=== PATIENT | female | born 1960 | race Caucasian/White ===

== ENCOUNTER → 2017-01-02 | Day surgery (SDC) | payer BC ==
[~2017-01-02] MED LIST: Lactated Ringers 1,000 ML IV SCH; Lactated Ringers 1,000 ML ONE; Propofol 200 MG/20 ML SDV IV ONE
[2017-01-02 13:32] VITALS: BP 168/82
--- NOTE | 2017-01-02 14:31 | OR ---
DATE OF OPERATION: 01/02/2017 PREOPERATIVE DIAGNOSIS: SCREENING COLONOSCOPY. POSTOPERATIVE DIAGNOSIS: SCREENING COLONOSCOPY. SURGEON: Cale Smyth MD PROCEDURE: FULL-LENGTH COLONOSCOPY. ANESTHESIA: FAMILY SUPPORT SPECIALIST due to GERD and prior gastric bypass. COMPLICATIONS: None. SPECIMEN: None. FINDINGS: Normal full-length colonoscopy. RECOMMENDATIONS: Routine colonoscopy every 10 years. INDICATIONS: The patient was in for routine physical. She has never had a prior colonoscopy. We recommended screening procedure. DESCRIPTION OF PROCEDURE: The patient was prepped and draped, placed in the left lateral decubitus position. A lubricated Olympus colonoscope was inserted and easily advanced to the cecum. Direct visualization of the ileocecal valve and appendiceal orifice was accomplished. The bowel prep was fine. Upon withdrawal of the scope throughout the entire length of the colon, I found no signs of any polyps, mass, ulceration, or bleeding sites. No vascular abnormalities or signs of colitis. No significant diverticula were seen. The rectal vault was unremarkable. Retroflexion of the scope in the rectum showed no anal lesions. Air was then suctioned. Scope was removed without complication. MAGUE/RADHA /[id number]
== END ==
LOC: CC.SDS 11:07
PROVIDERS: ATTEND Family Medicine
DX: Z12.11 Encounter for screening for malignant neoplasm of colon (principal)
CPT/HCPCS: 45378; J7120; J2704

== ENCOUNTER → 2018-02-05 | Day surgery (SDC) | payer BC ==
[~2018-02-05] MED LIST changes: -Lactated Ringers 1,000 ML ONE; +Lidocaine 4% Top Soln 5 ML LTA Syringe ONE; +Lidocaine 4% Top Soln 5 ML LTA Syringe TOP ONE; +Meperidine PF 25 MG/ML Syringe ONE; +Meperidine PF 50 MG/ML Syringe IV ONE; +Midazolam 1 MG/ML 2 ML SDV IV ONE; +Midazolam 1 MG/ML 2 ML SDV ONE; -Propofol 200 MG/20 ML SDV IV ONE
[2018-02-05 12:09] VITALS: BP 119/68
--- NOTE | 2018-02-08 08:13 | OR ---
DATE OF OPERATION: 02/05/2018 PREOPERATIVE DIAGNOSIS: EPIGASTRIC PAIN. POSTOPERATIVE DIAGNOSIS: EPIGASTRIC PAIN. SURGEON: Cale Smyth MD PROCEDURE: EGD WITH BIOPSIES X3, KAYLI. ANESTHESIA: Conscious sedation. COMPLICATIONS: None. SPECIMEN: 1. Anastomotic biopsy x1. 2. Distal esophageal biopsy x1. 3. Antral biopsy x1. 4. KAYLI. FINDINGS: 1. Full-length EGD. 2. Status post Quintin-en-Y gastric bypass. 3. Anastomotic ulcer over staple region. 4. Small hiatal hernia with spontaneous GERD. 5. 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 RECOMMENDATIONS: Medical followup pending path reports. INDICATIONS: Mrs. Rivera was recommended by GI to have an EGD after she has been having some abdominal pain. We had sent her there for elevated LFTs. She does take a daily proton pump inhibitor. DESCRIPTION OF PROCEDURE: The patient was prepped and draped, placed in left lateral decubitus position with the head of the bed elevated. A lubricated Olympus gastroscope was inserted over a bit and advanced to cricopharyngeus area and easily intubated in the esophagus. Esophageal line was essentially benign in its entire course. The Z-line was crisp and sharp around 36.5 to 37 cm associated with a small hiatal hernia. There was some spontaneous reflux present and there does appear to be at least 1 short segment Bhandari's change. We did do a biopsy of that. The scope was advanced into the stomach, where the patient is status post gastric bypass with a markedly diminished opacity. Quintin- en-Y anastomosis is evaluated. There is staple that has a dark scab or I suspect this represents a healing ulcer. I did not biopsy that area. There was some irregularity along one of the other areas of anastomosis and a biopsy was taken of that. The jejunal side of the anastomosis looks fine. There is no peptic ulcer disease on that side. The scope was brought back. Retroflex, I was able to look up at the upper cardia, which looked benign other than the hernia. We did do a biopsy of what was present in the antrum along with the KAYLI test. Air was then suctioned. Scope was removed without complication. MAGUE/RADHA /[id number]
== END ==
LOC: CC.SDS 10:55
PROVIDERS: ATTEND Family Medicine
DX: K29.50 Unspecified chronic gastritis without bleeding (principal); K21.0 Gastro-esophageal reflux disease with esophagitis; K44.9 Diaphragmatic hernia without obstruction or gangrene; F32.9 Major depressive disorder, single episode, unspecified; E53.8 Deficiency of other specified B group vitamins; J30.9 Allergic rhinitis, unspecified; Z88.1 Allergy status to other antibiotic agents; Z88.8 Allergy status to other drugs, medicaments and biological substances; Z79.899 Other long term (current) drug therapy
CPT/HCPCS: 87081; A9270-GY; J2175; J2250; J7120

== ENCOUNTER 2018-08-16 02:34 | Emergency (ER) | payer BC ==
[2018-08-16] MEDS ORDERED: Ketorolac 10 MG Tab PO ONE ×2 (02:35)
[2018-08-16] MEDS ORDERED: Sodium Chloride 0.9% 1,000 ML IV SCH (02:45)
[2018-08-16] MEDS ORDERED: Ketorolac 30 MG/ML SDV IVPUSH ONE (02:46)
[2018-08-16 03:22] LABS: CHLORIDE,CL 110 mEq/L (98-106); SODIUM,NA 144 mEq/L (136-145)
--- NOTE | 2018-08-16 03:38 | EDM.PDOC ---
ED HPI GENERAL MEDICAL PROBLEM - General Chief Complaint: Flank Pain Stated Complaint: L side pain Time Seen by Provider: 08/16/18 03:17 - History of Present Illness INITIAL COMMENTS - FREE TEXT/NARRATIVE: Sarita is a 58 year old female who presents to the ED with c/o left sided pain. She reports that throughout the day today she just overall didn't feel well. She then reports she got up to urinate around 1:00 am and had significant onset of left sided pain. She does report she has history of kidney stones and this feels similar. Denies any fever, chills, dysuria, urinary frequency, urgency, hematuria, chest pain, shortness of breath, or vomiting. Does report she has had some diarrhea today and felt nauseated on the drive to the ED. She reports she tried taking some Pepto Bismol and Tramadol at home without relief. She rated her pain 8/10 upon arrival to ED. Upon my exam, patient had recieved IV toradol and reports this took her pain away. Rates pain a 0/10. Left Flank Pain Score (Numeric/FACES): 8 - Related Data Allergies Allergy/AdvReac Type Severity Reaction Status Date / Time doxycycline Allergy Nausea and Verified 08/16/18 02:35 Vomiting morphine Allergy Cannot Verified 08/16/18 02:35 Remember Home Meds: Home Meds traMADol [Ultram] 50 - 100 mg PO Q6H PRN 01/02/17 [History] Ketorolac [Toradol] 10 mg PO Q6H PRN #15 tab 08/16/18 [Rx] Tamsulosin HCl [Flomax] 0.4 mg PO DAILY #7 cap.er.24h 08/16/18 [Rx] Past Medical History HEENT History: Reports: Impaired Vision Genitourinary History: Reports: Renal Calculus Dermatologic History: Reports: Melanoma - Past Surgical History GI Surgical History: Reports: Cholecystectomy, Other (See Below) Other GI Surgeries/Procedures: gastric bypass Female Surgical History: Reports: Kidney stone extraction Musculoskeletal Surgical History: Reports: Knee Replacement Social & Family History - Family History Family Medical History: Noncontributory - Tobacco Use Smoking Status *Q: Never Smoker - Caffeine Use Caffeine Use: Reports: Coffee - Recreational Drug Use Recreational Drug Use: No ED ROS GENERAL - Review of Systems Review Of Systems: ROS reveals no pertinent complaints other than HPI. Constitutional: Reports: Decreased Appetite. Denies: Fever, Chills, Weakness, Fatigue HEENT: Reports: No Symptoms Respiratory: Reports: No Symptoms Cardiovascular: Reports: No Symptoms Endocrine: Reports: No Symptoms GI/Abdominal: Reports: Abdominal Pain (radiating across left ), Diarrhea, Decreased Appetite, Nausea. Denies: Black Stool, Bloody Stool, Constipation, Vomiting : Reports: Flank Pain, Pain. Denies: Dysuria, Frequency, Hematuria, Urgency, Urinary Retention Musculoskeletal: Reports: Back Pain (left flank) Skin: Reports: No Symptoms Neurological: Reports: No Symptoms Psychiatric: Reports: No Symptoms Hematologic/Lymphatic: Reports: No Symptoms Immunologic: Reports: No Symptoms ED EXAM, RENAL/ - Physical Exam Exam: See Below Exam Limited By: No Limitations General Appearance: Alert, WD/WN, No Apparent Distress (upon my exam following toradol) Throat/Mouth: Normal Inspection, Normal Lips, Normal Teeth, Normal Gums, Normal Oropharynx, Normal Voice, No Airway Compromise Head: Atraumatic, Normocephalic Neck: Normal Inspection, Supple, Non-Tender, Full Range of Motion Respiratory/Chest: No Respiratory Distress, Lungs Clear, Normal Breath Sounds, No Accessory Muscle Use, Chest Non-Tender Cardiovascular: Normal Peripheral Pulses, Regular Rate, Rhythm, No Edema, No Gallop, No JVD, No Murmur, No Rub GI/Abdominal: Normal Bowel Sounds, Soft, Non-Tender, No Organomegaly, No Distention, No Abnormal Bruit, No Mass Back Exam: Normal Inspection, Full Range of Motion. No: CVA Tenderness (L) ( following toradol ), CVA Tenderness (R) Extremities: Normal Inspection, Normal Range of Motion, Non-Tender, Normal Capillary Refill, No Pedal Edema Neurological: Alert, Oriented, CN II-XII Intact, Normal Cognition, Normal Gait, Normal Reflexes, No Motor/Sensory Deficits Psychiatric: Normal Affect, Normal Mood Skin Exam: Warm, Dry, Intact, Normal Color, No Rash Course - Vital Signs Last Recorded V/S: Last Vital Signs Temp 97.7 F 08/16/18 02:37 Pulse 87 08/16/18 02:37 Resp 18 08/16/18 02:37 BP 164/79 H 08/16/18 03:42 Pulse Ox 100 08/16/18 02:37 - Orders/Labs/Meds Orders: Active Orders 24 hr Category Date Time Status Abdomen Pelvis wo Cont [CT] Routine Exams 08/16/18 Taken Sodium Chloride 0.9% [Normal Saline] 1,000 ml Med 08/16/18 03:55 Active IV NOW Sodium Chloride 0.9% [Normal Saline] 1,000 ml Med 08/16/18 02:45 Active IV STAT Medication Orders Sodium Chloride (Normal Saline) 1,000 mls @ 999 mls/hr IV STAT JOSE GUADALUPE Last Admin: 08/16/18 02:58 Dose: 999 mls/hr Sodium Chloride (Normal Saline) 1,000 mls @ 125 mls/hr IV NOW STA Stop: 08/16/18 11:54 Last Admin: 08/16/18 03:58 Dose: 125 mls/hr Labs: Laboratory Tests 08/16/18 08/16/18 08/16/18 Range/Units 03:10 03:10 03:10 WBC 4.9 L (5.0-10.0) 10^3/uL RBC 3.39 L (4.00-5.50) 10^6/uL Hgb 9.2 L (12.0-16.0) g/dL Hct 29.1 L (37.0-47.0) % MCV 85.8 (82.0-94.0) fL MCH 27.1 (27.0-32.0) pg MCHC 31.6 L (33.0-38.0) g/dL RDW Coeff of Rivka 15.7 H (11.0-15.0) % Plt Count 270 (150-400) 10^3/uL Neut % (Auto) 57.9 (35-85) % Lymph % (Auto) 24.8 (10-55) % [place] % (Auto) 9.9 (0-16) % Eos % (Auto) 6.6 H (0-5) % Baso % (Auto) 0.8 (0-3) % Neut # (Auto) 2.82 (1.80-7.00) 10^3/uL Lymph # (Auto) 1.21 (1.00-4.80) 10^3/uL [place] # (Auto) 0.48 (0.00-0.80) 10^3/uL Eos # (Auto) 0.32 (0.00-0.45) 10^3/uL Baso # (Auto) 0.04 10^3/uL Sodium 144 (136-145) mEq/L Potassium 4.6 (3.5-5.0) mEq/L Chloride 110 H (98-106) mEq/L Carbon Dioxide 27 (21-32) mmol/L BUN 17 (7-18) mg/dL Creatinine 0.8 (0.6-1.0) mg/dL Est Cr Clr Drug Dosing 73.63 mL/min Estimated GFR (MDRD) > 60 (>=60) mL/min Glucose 107 H (75-99) mg/dL Calcium 8.2 L (8.4-10.1) mg/dL C-Reactive Protein < 0.2 L (0.2-0.8) mg/dL Urine Color Yellow (YELLOW) Urine Appearance Clear (CLEAR) Urine pH 5.0 (4.5-8.0) Ur Specific [place] 1.025 H (1.003-1.020) Urine Protein Negative (NEGATIVE) mg/dL Urine Glucose (UA) Negative (NEGATIVE) mg/dL Urine Ketones Negative (NEGATIVE) mg/dL Urine Occult Blood Negative (NEGATIVE) Urine Nitrite Negative (NEGATIVE) Urine Bilirubin Negative (NEGATIVE) Urine Urobilinogen 0.2 (0.2-1.0) EU/dL Ur Leukocyte Esterase Negative (NEGATIVE) Urine RBC Not seen (0-5) /HPF Urine WBC Not seen (0-5) /HPF Ur Squamous Epith Cells Occasional H (NOT SEEN) /HPF Calcium Oxalate Crystal Many H (NOT SEEN) /HPF Meds: Medications Generic Name Dose Route Start Last Admin Trade Name Freq PRN Reason Stop Dose Admin Sodium Chloride 1,000 mls @ 999 mls/hr 08/16/18 02:45 08/16/18 02:58 Normal Saline IV 999 mls/hr STAT JOSE GUADALUPE Administration Sodium Chloride 1,000 mls @ 125 mls/hr 08/16/18 03:55 08/16/18 03:58 Normal Saline IV 08/16/18 11:54 125 mls/hr NOW STA Administration Discontinued Medications Generic Name Dose Route Start Last Admin Trade Name Freq PRN Reason Stop Dose Admin Ketorolac Tromethamine 30 mg 08/16/18 02:46 08/16/18 02:59 Toradol IVPUSH 08/16/18 02:47 30 mg ONETIME ONE Administration - Re-Assessments/Exams Free Text/Narrative Re-Assessment/Exam: 08/16/18 03:[address] findings with patient. 08/16/18 04:20 CT shows 3.5 mm stone left ureter, mild left sided hydronephrosis. Incidental finding of LLL pulmonary nodule. Findings were discussed with patient. Departure - Departure Time of Disposition: 04:21 Disposition: Home, Self-Care 01 Condition: Fair Clinical Impression: Kidney stone on left side, Hydronephrosis of left kidney, Pulmonary nodule, left - Discharge Information *PRESCRIPTION DRUG MONITORING PROGRAM REVIEWED*: No *COPY OF PRESCRIPTION DRUG MONITORING REPORT IN PATIENT [place]: No Instructions: Kidney Stones, [id number] Referrals: Cale Smyth MD [Primary Care Provider] - Forms: ED Department Discharge Additional Instructions: CT reveals 3.5 mm stone of left ureter with mild left hydronephrosis Incidental finding of LLL pulmonary nodule. Flomax daily for next week Toradol every 6 hours as needed for pain. May use Tramadol in between for breakthrough pain as well. Rest and push fluids Recommend outpatient urology consultation, to be arranged by PCP Follow up with PCP in next 5-7 days for ER recheck - My Orders Last 24 Hours: My Active Orders 08/16/18 Abdomen Pelvis wo Cont [CT] Routine 08/16/18 02:45 Sodium Chloride 0.9% [Normal Saline] 1,000 ml IV STAT 08/16/18 03:55 Sodium Chloride 0.9% [Normal Saline] 1,000 ml IV NOW - Assessment/Plan Last 24 Hours: My Active Orders 08/16/18 Abdomen Pelvis wo Cont [CT] Routine 08/16/18 02:45 Sodium Chloride 0.9% [Normal Saline] 1,000 ml IV STAT 08/16/18 03:55 Sodium Chloride 0.9% [Normal Saline] 1,000 ml IV NOW
[2018-08-16 03:44] VITALS: BP 164/79
[2018-08-16] MEDS ORDERED: Sodium Chloride 0.9% 1,000 ML IV STA (03:55)
[2018-08-16] MEDS ORDERED: Tamsulosin 0.4 MG Cap.ER PO ONE (04:25)
[2018-08-16] MEDS ORDERED: Take Home: Ketorolac 10 MG Tab, 4 Tab Pack PO ONE (04:25)
== END 2018-08-16 04:31 | disposition home or self-care (01) ==
LOC: CC.ED 02:34
DX: N13.2 Hydronephrosis with renal and ureteral calculous obstruction (principal); R91.1 Solitary pulmonary nodule; Z88.8 Allergy status to other drugs, medicaments and biological substances; Z88.5 Allergy status to narcotic agent; Z79.52 Long term (current) use of systemic steroids
CPT/HCPCS: 36415; 74176; 80048; 81001; 85025; 86140; 96361; 96374; 99284; A9270; J1885; J7030; 96365; 96375

== ENCOUNTER → 2023-05-08 | Day surgery (SDC) | payer BC ==
[~2023-05-08] MED LIST changes: +Ketamine 200 MG/20 ML MDV ONE; +Lidocaine 2% 20 ML MDV ONE; -Lidocaine 4% Top Soln 5 ML LTA Syringe ONE; -Lidocaine 4% Top Soln 5 ML LTA Syringe TOP ONE; -Meperidine PF 25 MG/ML Syringe ONE; -Meperidine PF 50 MG/ML Syringe IV ONE; -Midazolam 1 MG/ML 2 ML SDV IV ONE; -Midazolam 1 MG/ML 2 ML SDV ONE; +Propofol 200 MG/20 ML SDV ONE; +fentaNYL 50 MCG/ML SDV ONE
[2023-05-08 13:50] VITALS: BP 134/62; PULSE 54
== END ==
LOC: CC.SDS 10:09
PROVIDERS: ATTEND Family Medicine
DX: Z12.11 Encounter for screening for malignant neoplasm of colon (principal); K28.5 Chronic or unspecified gastrojejunal ulcer with perforation; K44.9 Diaphragmatic hernia without obstruction or gangrene; K22.70 Barrett's esophagus without dysplasia; K21.9 Gastro-esophageal reflux disease without esophagitis; K57.30 Diverticulosis of large intestine without perforation or abscess without bleeding; D64.9 Anemia, unspecified; J30.9 Allergic rhinitis, unspecified; E53.8 Deficiency of other specified B group vitamins; F32.A Depression, unspecified; R74.8 Abnormal levels of other serum enzymes; R79.89 Other specified abnormal findings of blood chemistry; M19.90 Unspecified osteoarthritis, unspecified site; M85.80 Other specified disorders of bone density and structure, unspecified site; Z88.1 Allergy status to other antibiotic agents; Z88.5 Allergy status to narcotic agent; Z80.0 Family history of malignant neoplasm of digestive organs; Z98.84 Bariatric surgery status
CPT/HCPCS: 00813; 87081; J2704; J3010; J3490; J7120